=== PATIENT | female | born 1975 | race Two or more races ===

== ENCOUNTER 2018-03-07 13:20 | Emergency (ER) | payer MEDICAID, OTHER ==
[~2018-03-07] VITALS: Ht 152.4 cm; Wt 68.0 kg
[2018-03-07 13:28] VITALS: BP 126/78
[2018-03-07] MEDS ORDERED: IBUPROFEN 800 MG TAB PO ONE (15:45)
== END 2018-03-07 16:34 | disposition home or self-care (01) ==
LOC: ER 13:20
DX: S20.211A Contusion of right front wall of thorax, initial encounter (principal); V49.49XA Driver injured in collision with other motor vehicles in traffic accident, initial encounter; Y93.89 Activity, other specified; Y99.8 Other external cause status; Y92.89 Other specified places as the place of occurrence of the external cause
CPT/HCPCS: 71046; 81025